=== PATIENT | female | born 1975 | race Caucasian/White ===

== ENCOUNTER 2016-08-30 12:52 | Emergency (ER) | payer OTHER ==
[~2016-08-30] VITALS: Ht 180.3 cm; Wt 59.0 kg
--- NOTE | 2016-08-30 13:35 | ED GI/GU/ABDOMINAL COMPLAINT ---
History of Present Illness General Chief Complaint: General Adult Stated Complaint: ?BOWEL OBSTRUCTION Source: patient, family, old records Exam Limitations: no limitations Vital Signs & Intake/Output Vital Signs & Intake/Output Vital Signs Date Time Temp Pulse Resp B/P Pulse O2 O2 Flow FiO2 Ox Delivery Rate 08/30 1500 97.0 74 22 123/78 98 Room Air 08/30 1358 97.0 78 22 126/79 98 Room Air 08/30 1257 98.7 82 18 130/80 97 Room Air Room Air Allergies Coded Allergies: Iodinated Contrast Media - Oral and (Intermediate, THROAT FUZZY 08/30/16) Uncoded Allergies: clear tape (rash 06/19/11) Reconcile Medications Almotriptan Malate 12.5 MG TABLET 1 TAB PO AD PRN HEADACHE (Reported) Dexamethasone 4 MG TABLET 1 TAB PO DAILY PRN HEADACHE (Reported) Hyoscyamine Sulfate (Levsin-Sl) 0.125 MG TAB.SUBL 1-2 TAB SL Q4P PRN abdominal cramps Ibuprofen 200 MG CAPSULE 3 TAB PO DAILY PRN HEADACHE (Reported) Loperamide HCl (Imodium A-D) 2 MG TABLET 1 TAB PO TIDPRN PRN diarrhea Norethindrone-E.estradiol-Iron (Lo Loestrin Fe 1-10 Tablet) 1MG-10(24) TABLET 1 TAB PO DAILY BC (Reported) Omeprazole Magnesium (Prilosec Otc) 20 MG TABLET.DR 1 TAB PO DAILY GI ( Reported) Oxycodone HCl/Acetaminophen (Oxycodone-Acetaminophen 5-325) 5 MG-325 MG TABLET 1 TAB PO BIDP PRN HEADACHE (Reported) Ranitidine (Ranitidine HCl) 150 MG TABLET 1 TAB PO BID GI (Reported) Rizatriptan Benzoate (Maxalt) 10 MG TABLET 1 TAB PO AD PRN HEADACHE (Reported ) Spironolactone 100 MG TABLET 1 TAB PO QPM UNKNOWN (Reported) Topiramate 50 MG TABLET 3 TAB PO QPM HEADACHE (Reported) Triage Note: TRIAGE: 40 Y/O FEMALE PRESENTS C/O ?BOWEL OBSTRUCTION. REPORTS "LOWER ABDOMINAL BLOATING. HAVE NOT HAD A SOLID BOWEL MOVEMENT SINCE THURSDAY. "HAVING PURE DIARRHEA SAINCE THURSDAY. TRIED MIRALAX, SUPPOSITORIES, ENEMA." REPORTS LWOER ABDOMINAL DISCOMFORT 12/08, "LIKE A REALLY BAD PERIOD." DENIES HISTORY OF OBSTRUCTION. Triage Nurses Notes Reviewed? yes LMP (ages 10-50): unknown ? n Is pt currently ? 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 Since this time she's had episodes of constipation frequent loose watery stool. Last month she was seen at [facility] with severe diarrhea dehydration with normal lab exam and CT scan. 10 days prior to admission she complains of recurrent frequent loose watery stool and lower abdominal cramping mild to moderate occurring intermittently radiating to her back associated with decreased appetite and nausea. She denies fever chills chest pain cough shortness of breath headache dysuria rash bleeding. Past History Travel History Traveled to [place] past 21 day No Medical History Any Pertinent Medical History? see below for history Neurological: VASO VAGAL SYNCOPE Renal: 2 SPENIC ANEURYSMS Tetanus Vaccine: Surgical History Surgical History: non-contributory Psychosocial History What is your primary language Honduran Tobacco Use: Never used ETOH Use: denies use Illicit Drug Use: denies illicit drug use Family History Hx Contributory? No Review of Systems Review of Systems Constitutional: Reports: no symptoms. EENTM: Reports: no symptoms. Respiratory: Reports: no symptoms. Cardiovascular: Reports: no symptoms. GI: Reports: see HPI, abdominal pain, diarrhea, nausea. Genitourinary: Reports: no symptoms. Musculoskeletal: Reports: no symptoms. Skin: Reports: no symptoms. Neurological/Psychological: Reports: no symptoms. Hematologic/Endocrine: Reports: no symptoms. Immunologic/Allergic: Reports: no symptoms. All Other Systems: Reviewed and Negative Physical Exam Physical Exam General Appearance: well developed/nourished, alert, awake, anxious, mild distress, thin Head: atraumatic, normal appearance Eyes: Bilateral: normal appearance, PERRL, EOMI, normal inspection. Ears, Nose, Throat, Mouth: hearing grossly normal, moist mucous membrane Neck: normal inspection, supple, full range of motion, normal alignment Respiratory: normal breath sounds, chest non-tender, no respiratory distress, quiet respiration, lungs clear Cardiovascular: regular rate/rhythm, normal peripheral pulses, norml femoral pulses equa Peripheral Pulses: 4+ carotid (R), 4+ carotid (L) Gastrointestinal: normal bowel sounds, soft, non-tender, no organomegaly Back: normal inspection, normal range of motion Extremities: normal range of motion, no ligament instability Neurologic/Psych: no motor/sensory deficits, awake, alert, oriented x 3, normal gait, normal mood/affect Skin: intact, normal color, warm/dry Core Measures ACS in differential dx? No Severe Sepsis Present: No Septic Shock Present: No Progress Differential Diagnosis: biliary colic, bowel obstruction, gastritis, inflamm bowel dis, UTI/pyelo Plan of Care: Orders Procedure Date/time Status URINE 08/30 1330 Complete URINALYSIS 08/30 1330 Complete Laboratory Tests 08/30/16 1334: Urine Color YEL, Urine Clarity CLEAR, Urine pH 6.0, Ur Specific [place] 1.020, Urine Protein NEG, Urine Ketones 15 H, Urine Nitrite NEG, Urine Bilirubin NEG, Urine Urobilinogen 0.2, Ur Leukocyte Esterase NEG, Ur Microscopic SEDIMENT EXAMINED, Urine RBC RARE, Urine WBC RARE, Ur Epithelial Cells FEW, Urine Mucus FEW, Urine Hemoglobin MOD H, Urine Glucose NEG, Urine Test NEGATIVE Initial ED EKG: none Departure Departure Time of Disposition: 1503 Disposition: HOME OR SELF CARE Condition: Stable Clinical Impression Primary Impression: Irritable bowel syndrome Qualifiers: Irritable bowel syndrome type: with diarrhea Qualified Code: K58.0 - Irritable bowel syndrome with diarrhea Referrals: GUSTABO SALCEDO,GABRIELLA Chacon (PCP/Family) JESSICA SALCEDO,EVIN Clement Call for GI follow up Additional Instructions: Stop laxatives and suppositories for now Departure Forms: Customer Survey General Discharge Information Prescriptions: Current Visit Scripts Hyoscyamine Sulfate (Levsin-Sl) 1-2 TAB SL Q4P PRN abdominal cramps #60 TAB Loperamide HCl (Imodium A-D) 1 TAB PO TIDPRN PRN diarrhea #24 TAB
[2016-08-30] MEDS ORDERED: TOPIRAMATE50 M1 PO (14:29)
[2016-08-30] MEDS ORDERED: SPIRONOLACTONE100 M1 PO (14:29)
[2016-08-30] MEDS ORDERED: LO LOESTRIN FE1 EACH PO (14:30)
[2016-08-30] MEDS ORDERED: ALMOTRIPTAN M12.5 MG PO (14:30)
[2016-08-30] MEDS ORDERED: RANITIDINE HCL150 MG PO (14:30)
[2016-08-30] MEDS ORDERED: MAXALT10 M1 PO (14:30)
[2016-08-30] MEDS ORDERED: OXYCODONE-ACET1 EACH PO (14:31)
[2016-08-30] MEDS ORDERED: DEXAMETHASONE4 M1 PO (14:31)
--- NOTE | 2016-08-30 14:31 | RADIOLOGY REPORT ---
EXAMINATION: XR ABDOMEN CLINICAL INDICATION: No stool 10 days. Obstipation. COMPARISON: None TECHNIQUE: 2 views of the abdomen were obtained. FINDINGS: No pneumoperitoneum. No portal venous gas. No dilated loops of large or small bowel. No large stool burden demonstrated. Lung bases are clear. No acute osseous abnormalities. IMPRESSION: Nonobstructive bowel gas pattern. No evidence of large stool burden.
[2016-08-30] MEDS ORDERED: IBUPROFEN200 M3 PO (14:32)
[2016-08-30] MEDS ORDERED: PRILOSEC OTC20 M1 PO (14:32)
[2016-08-30 15:00] VITALS: BP 123/78
[2016-08-30] MEDS ORDERED: LEVSIN-SL0.125 MG SL (15:05)
[2016-08-30] MEDS ORDERED: IMODIUM A-D2 M1 PO (15:05)
== END 2016-08-30 15:24 ==
LOC: ERH 12:52
DX: K58.0 Irritable bowel syndrome with diarrhea (principal)
CPT/HCPCS: 74020; 81001; 81025; 96372